=== PATIENT | female | born 1985 | race Caucasian/White ===

== ENCOUNTER 2016-07-30 13:26 | Emergency (ER) | payer OTHER ==
[2016-07-30 13:49] VITALS: BMI 37.0
[2016-07-30 13:52] VITALS: BP 120/85; PULSE 81; RESP 19; TEMP 98.7; O2SAT 99
--- NOTE | 2016-07-30 13:57 | ED PDOC ---
Arrival/HPI - General Chief Complaint: Trauma Time Seen by Provider: 07/30/16 13:52 Historian: Patient - History of Present Illness Narrative History of Present Illness (Text): 07/30/16 13:54 31 y/o female, no pmh, nkda, c/o lt. thumb pain s/p fall yesterday. Pt. stated that she tripped, hyperextended the lt. thumb, been having pain, no numbness or tingling, refused pain medication, no night sweat, no dizziness, no other medical or psychological complaints. Past Medical History - Provider Review Nursing Documentation Reviewed: Yes - Infectious Disease Hx of Infectious Diseases: None - Tetanus Immunization Tetanus Immunization: Unknown - Cardiac Hx Cardiac Disorders: No - Pulmonary Hx Respiratory Disorders: Yes Hx Pulmonary Embolism: Yes - Psychiatric Hx Psychophysiologic Disorder: No Hx Substance Use: No - Anesthesia Hx Anesthesia: No Hx Anesthesia Reactions: No Hx Malignant Hyperthermia: No Family/Social History - Physician Review Nursing Documentation Reviewed: Yes Family/Social History: Unknown Family HX Smoking Status: Current Some Days Smoker Hx Alcohol Use: No Hx Substance Use: No Allergies/Home Meds Allergies/Adverse Reactions: Allergies pineapple Adverse Reaction (Verified 07/30/16 13:49) ANGIOEDEMA Home Medications: Home Meds Medication Instructions Recorded Confirmed buPROPion [Wellbutrin] 125 mg PO BID 07/30/16 07/30/16 Review of Systems - Review of Systems Constitutional: absent: Fatigue, Fevers Eyes: absent: Vision Changes ENT: absent: Hearing Changes Respiratory: absent: SOB, Cough Cardiovascular: absent: Chest Pain Gastrointestinal: absent: Abdominal Pain, Nausea, Vomiting Musculoskeletal: Arthralgias. absent: Back Pain, Neck Pain, Joint Swelling, Myalgias Neurological: absent: Headache, Dizziness Physical Exam Vital Signs Reviewed: Yes Vital Signs Temp Pulse Resp BP Pulse Ox 07/30/16 13:51 98.7 F 81 19 120/85 99 Temperature: Afebrile Blood Pressure: Normal Pulse: Regular Respiratory Rate: Normal Appearance: Positive for: Well-Appearing, Non-Toxic, Comfortable Pain Distress: Mild Mental Status: Positive for: Alert and Oriented X 3 - Systems Exam Head: Present: Atraumatic, Normocephalic Pupils: Present: PERRL Extroacular Muscles: Present: EOMI Conjunctiva: Present: Normal Mouth: Present: Moist Mucous Membranes Neck: Present: Normal Range of Motion Respiratory/Chest: Present: Clear to Auscultation, Good Air Exchange. No: Respiratory Distress, Accessory Muscle Use Cardiovascular: Present: Regular Rate and Rhythm, Normal S1, S2. No: Murmurs Abdomen: Present: Normal Bowel Sounds. No: Tenderness, Distention, Peritoneal Signs Back: Present: Normal Inspection Upper Extremity: Present: Normal Inspection, Other (Lt. hand: +ttp and swelling noted on the 1st MCPJ region with skin intact, no laceration or abrasion, FROM without limitation, no scaphoid tenderness, sensation intact, motor 5/5, + Radial pulse, capillary refill< 2 seconds, neurovascular intact. ). No: Cyanosis, Edema Lower Extremity: Present: Normal Inspection. No: Edema Neurological: Present: GCS=15, CN II-XII Intact, Speech Normal Skin: Present: Warm, Dry, Normal Color. No: Rashes Psychiatric: Present: Alert, Oriented x 3, Normal Insight, Normal Concentration Medical Decision Making ED Course and Treatment: 07/30/16 13:56 -lt. hand xray -pt. refused pain medication -thumb spica splint applied me with neurovascular intact, sling given. -Discharge home with thumb spica splint, sling, take tylenol for pain as needed , ice compression, follow up with your own pmd and hand specialist/orthopedic within 2 days, return to the ER for any new or worsening signs or symptoms. - RAD Interpretation Radiology Orders: 07/30/16 13:52 HAND LEFT 3 VIEWS ROUTINE [RAD] Stat normal left hand radiograph [employer]ter: Radiologist - PA / [employer] / Resident Statement MD/DO has reviewed & agrees with the documentation as recorded. Disposition/Present on Arrival - Present on Arrival Any Indicators Present on Arrival: No History of DVT/PE: No History of Uncontrolled Diabetes: No Urinary Catheter: No History of Decub. Ulcer: No History Surgical Site Infection Following: None - Disposition Have Diagnosis and Disposition been Completed?: Yes Diagnosis: Thumb injury Disposition: HOME/ ROUTINE Disposition Time: 13:58 Patient Plan: Discharge Condition: GOOD Additional Instructions: Discharge home with thumb spica splint, sling, take tylenol for pain as needed, ice compression, follow up with your own pmd and hand specialist/orthopedic within 2 days, return to the ER for any new or worsening signs or symptoms. Referrals: Donavan Pike MD [Staff Provider] - Follow up with primary Biju Flynn MD [Staff Provider] - Follow up with primary Forms: WORK NOTE
--- NOTE | 2016-07-30 15:16 | RAD ---
PROCEDURE: Left Hand Radiographs. HISTORY: lt. hand 1st MCPJ pain s/p fall COMPARISON: None. FINDINGS: BONES: Normal. No fracture. JOINTS: Normal. No osteoarthritic changes. SOFT TISSUES: Normal. OTHER FINDINGS: None. IMPRESSION: Normal left hand radiographs.
== END 2016-07-30 14:29 | disposition home or self-care (01) ==
LOC: ED 13:26
DX: S69.92XA Unspecified injury of left wrist, hand and finger(s), initial encounter (principal); W01.0XXA Fall on same level from slipping, tripping and stumbling without subsequent striking against object, initial encounter; Y93.89 Activity, other specified; Y92.89 Other specified places as the place of occurrence of the external cause